=== PATIENT | male | born 1980 | race Caucasian/White ===

== ENCOUNTER 2021-12-15 22:47 | Emergency (ER) | payer SELFPAY ==
[~2021-12-15] VITALS: Ht 167.6 cm; Wt 91.3 kg
[2021-12-16 02:35] LABS: BASOPHILS % 0.2 % (0.0-2.0); EOSINOPHILS % 0.6 % (0.0-5.0); HEMATOCRIT. 42.7 % (42.0-52.0); HEMOGLOBIN. 14.6 g/dL (14.0-18.0); LYMPHOCYTES % 21.9 % (20.0-50.0); MEAN CORPUSCULAR HEMOGLOBIN 31.9 pg (28.0-32.0); MEAN CORPUSCULAR VOLUME 93.6 fL (80.0-94.0); MEAN PLATELET VOLUME 9.7 fl (7.4-10.4); MONOCYTES % 7.4 % (2.0-8.0); NEUTROPHILS % 69.9 % (40.0-76.0); PLATELET 207 x1000/uL (130-400); RED BLOOD CELL COUNT 4.56 mill/uL (4.7-6.1); RED CELL DISTRIBUTION WIDTH 13.2 % (11.6-14.6)
[2021-12-16 02:38] LABS: CHLORIDE 105 mEq/L (98-107)
[2021-12-16] MEDS ORDERED: IBUP-2029 MT (05:45)
[2021-12-16 06:13] VITALS: BP 124/80
== END 2021-12-16 06:14 | disposition home or self-care (01) ==
LOC: ER 22:47
DX: R07.89 Other chest pain (principal)
CPT/HCPCS: 36415; 71045; 80053; 83880; 84484; 85025; 85379; 99284

== ENCOUNTER 2023-08-27 03:53 | Emergency (ER) | payer MEDICAID ==
[~2023-08-27] VITALS: Ht 167.6 cm; Wt 91.0 kg
[~2023-08-27 03:53] MED LIST: IBUP-2029 MT
[2023-08-27 04:03] VITALS: O2SAT 100
[2023-08-27] MEDS ORDERED: IBUP-2029 MT (04:41)
[2023-08-27] MEDS ORDERED: METH-653 MT (04:41)
[2023-08-27 04:47] VITALS: TEMP 98.7
[2023-08-27] MEDS: CYCLOBENZAPRINE 10MG TABLET PO ONE (05:07)
[2023-08-27 05:08] VITALS: BP 153/108; PULSE 83; RESP 16
[2023-08-27] MEDS: KETOROLAC 30MG/ML VIAL IM ONE (05:08)
== END 2023-08-27 05:07 | disposition home or self-care (01) ==
LOC: ER 03:53
DX: M79.10 Myalgia, unspecified site (principal); M25.511 Pain in right shoulder; M25.512 Pain in left shoulder; E78.00 Pure hypercholesterolemia, unspecified; F12.10 Cannabis abuse, uncomplicated
CPT/HCPCS: 96372; 99283; J1885; Z7610